=== PATIENT | male | born 1965 | race Hispanic/Latino ===

== ENCOUNTER 2021-03-11 18:14 | Emergency (ER) | payer OTHER ==
[2021-03-12] MEDS ORDERED: RAMI2.5C55 PO (09:47)
[2021-03-12] MEDS ORDERED: SIMV-43 PO (09:47)
[2021-03-12] MEDS ORDERED: MULT-1259 PO (09:47)
== END 2021-03-11 18:54 | disposition left against medical advice (07) ==
LOC: EDH 18:14
DX: S61.012A Laceration without foreign body of left thumb without damage to nail, initial encounter (principal); Z98.890 Other specified postprocedural states; Z53.21 Procedure and treatment not carried out due to patient leaving prior to being seen by health care provider; W26.8XXA Contact with other sharp object(s), not elsewhere classified, initial encounter; Y93.89 Activity, other specified; Y92.89 Other specified places as the place of occurrence of the external cause; Y99.8 Other external cause status

== ENCOUNTER 2021-03-11 20:45 | Observation (INO) | payer OTHER ==
[~2021-03-11] VITALS: Ht 165.1 cm; Wt 87.2 kg
[2021-03-11] MEDS ORDERED: SODIUM CHLORIDE 0.9% 50 ML IV ONE (21:31)
[2021-03-11 21:34] LABS: APPEARANCE,URINE Clear (CLEAR); BASOPHILS % (AUTO) 0.5 % (0.0-5.0); BILIRUBIN,URINE Negative (NEGATIVE); COLOR,URINE Yellow (YELLOW); EOSINOPHILS % (AUTO) 1.8 % (0.0-8.0); GLUCOSE, URINE (UA) >=1000 mg/dL (NEGATIVE); KETONES,URINE Negative (NEGATIVE); LEUKOCYTE ESTERASE ,URINE Negative (NEGATIVE); LYMPHOCYTES % (AUTO) 31.1 % (21.0-51.0); MEAN CORPUSCULAR HGB CONC 33.1 g/dL (32.0-36.0); MEAN CORPUSCULAR VOLUME 90.7 fL (79-99); MONOCYTES % (AUTO) 7.2 % (3.0-13.0); NEUTROPHILS % (AUTO) 59.2 % (40.0-77.0); NITRATE,URINE Negative (NEGATIVE); OCCULT BLOOD,URINE Trace (NEGATIVE); PLATELET COUNT (AUTO) 161 K/uL (130-400); PROTEIN,URINE Negative (NEGATIVE); RED BLOOD CELL COUNT(AUTO) 4.96 MIL/uL (4.50-6.20); RED CELL DISTRIBUTION WIDTH 13.6 % (11.0-15.5); WHITE BLOOD COUNT (AUTO) 8.9 K/uL (4.8-10.8)
[2021-03-11] MEDS ORDERED: CEFAZOLIN SODIUM 1 GM VIAL ONE (21:34)
[2021-03-11 21:41] LABS: BACTERIA,URINE Rare /HPF (None Seen); RBC,URINE 0-1 /HPF (0-1); SQUAMOUS EPITHELIAL CELL,UR Rare /HPF (0-2); WBC,URINE 0-1 /HPF (0-1)
[2021-03-11 21:42] LABS: MUCUS,URINE Rare LPF (None Seen)
[2021-03-11 21:48] LABS: CREATININE 1.3 mg/dL (0.5-1.5); POTASSIUM 4.2 mmol/L (3.5-5.1)
[2021-03-11 21:51] LABS: INR 1.03 (0.85-1.15); PROTHROMBIN TIME 11.2 SEC (9.6-11.6)
[2021-03-11 21:52] LABS: BILIRUBIN,TOTAL 0.5 mg/dL (0.2-1.0); PARTIAL THROMBOPLASTIN TIME 24.8 SEC (26.3-35.5); TOTAL PROTEIN, SERUM 8.3 g/dL (6.0-8.3)
[2021-03-11] MEDS ORDERED: VANCOMYCIN PROTOCOL PER PHARMACY IV PRN (22:15)
[2021-03-11] MEDS ORDERED: ACETAMINOPHEN-CODEINE 300/30MG TAB PO PRN ×2 (22:15)
[2021-03-11] MEDS ORDERED: SODIUM CHLORIDE 0.9% 1000ML 1,000 ML IV SCH ×2 (22:15)
[2021-03-11] MEDS ORDERED: ONDANSETRON HCL 4 MG/2 ML VIAL IV PRN (22:15)
[2021-03-11] MEDS ORDERED: NITROGLYCERIN 0.4 MG SL TAB SL PRN (22:15)
[2021-03-11] MEDS ORDERED: ACETAMINOPHEN 325 MG TAB PO PRN ×2 (22:15)
[2021-03-11 22:37] LABS: HEMOGLOBIN A1C 8.9 % (4.0-6.0)
[2021-03-11 22:39] LABS: AMPHET/METH SCREEN,URINE NEGATIVE (NEGATIVE); BARBITURATE SCREEN, URINE NEGATIVE (NEGATIVE); BENZODIAZEPINES SCREEN,URINE NEGATIVE (NEGATIVE); CANNABINOID SCREEN,URINE NEGATIVE (NEGATIVE); COCAINE SCREEN,URINE NEGATIVE (NEGATIVE); OPIATE SCREEN,URINE POSITIVE (NEGATIVE); PHENCYCLIDINE SCREEN,URINE NEGATIVE (NEGATIVE)
[2021-03-11] MEDS ORDERED: GLUCAGON 1MG KIT 1 MG ML IM PRN (23:45)
[2021-03-11] MEDS ORDERED: DEXTROSE 50%-WATER 50 ML DISP.SYRIN IV PRN (23:45)
[2021-03-11] MEDS ORDERED: SODIUM CHLORIDE 0.9% 1000ML 2,000 ML IV ONE (23:54)
[2021-03-12] VITALS (18 sets, daily range): BP systolic 114–143; BP diastolic 68–89
[2021-03-12] MEDS ORDERED: IPRATROPIUM/ALBUTEROL SULFATE 3 ML SOLUTION IH PRN (00:30)
[2021-03-12 05:57] LABS: BASOPHILS % (AUTO) 0.6 % (0.0-5.0); EOSINOPHILS % (AUTO) 2.7 % (0.0-8.0); LYMPHOCYTES % (AUTO) 32.7 % (21.0-51.0); MEAN CORPUSCULAR HGB CONC 32.7 g/dL (32.0-36.0); MEAN CORPUSCULAR VOLUME 91.9 fL (79-99); MONOCYTES % (AUTO) 9.4 % (3.0-13.0); NEUTROPHILS % (AUTO) 54.3 % (40.0-77.0); PLATELET COUNT (AUTO) 151 K/uL (130-400); RED BLOOD CELL COUNT(AUTO) 4.46 MIL/uL (4.50-6.20); RED CELL DISTRIBUTION WIDTH 13.6 % (11.0-15.5); WHITE BLOOD COUNT (AUTO) 7.1 K/uL (4.8-10.8)
[2021-03-12 06:16] LABS: ALBUMIN 3.3 g/dL (3.5-5.0); BILIRUBIN,TOTAL 0.4 mg/dL (0.2-1.0); POTASSIUM 4.1 mmol/L (3.5-5.1)
[2021-03-12] MEDS ORDERED: RAMI2.5C55 PO (09:47)
[2021-03-12] MEDS ORDERED: SIMV-43 PO (09:47)
[2021-03-12] MEDS ORDERED: MULT-1259 PO (09:47)
[2021-03-12] MEDS: INSULIN HUMULIN R 100 UNIT/ML 3ML SQ SCH ×2 (11:30→17:19)
[2021-03-12] MEDS ORDERED: CEFTRIAXONE SODIUM 1 GM IV SCH (11:37)
[2021-03-12] MEDS ORDERED: FAMOTIDINE 20MG TAB 20 MG TAB PO SCH (11:37)
[2021-03-12] MEDS ORDERED: LISINOPRIL 10 MG TABLET PO SCH (11:38)
[2021-03-12] MEDS ORDERED: VANCOMYCIN 1GM+NS 250ML 250 ML IV SCH ×2 (12:00→21:00)
[2021-03-12] MEDS ORDERED: FENTANYL CITRATE PF 50 MCG/1 ML 2ML VIAL ONE ×2 (12:22→13:02)
[2021-03-12] MEDS ORDERED: MIDAZOLAM HCL 1 MG/ML 2ML VIAL ONE (12:23)
[2021-03-12] MEDS ORDERED: CEFAZOLIN SODIUM 1 GM VIAL ONE (12:54)
[2021-03-12] MEDS ORDERED: LIDOCAINE HCL 1% 20 ML VIAL ONE (13:02)
[2021-03-12] MEDS ORDERED: BUPIVACAINE/PF 0.25% 30ML VIAL IJ ONE (13:02)
[2021-03-12] MEDS ORDERED: DEXAMETHASONE SOD PHOSPHATE 10MG/ML 1ML VIAL ONE (13:37)
[2021-03-12] MEDS ORDERED: ONDANSETRON HCL 4 MG/2 ML VIAL ONE (13:37)
[2021-03-12] MEDS ORDERED: SIMVASTATIN 20 MG TABLET PO SCH (21:00)
== END 2021-03-12 19:00 | disposition home or self-care (01) ==
LOC: EDH 20:45 → INTOOBSV 22:03 → EDHIP 22:03 → 3DH 03-12 02:02
PROVIDERS: ADMIT Internal Medicine; ATTEND Internal Medicine
DX: S67.02XA Crushing injury of left thumb, initial encounter (principal); S62.522A Displaced fracture of distal phalanx of left thumb, initial encounter for closed fracture; S61.112A Laceration without foreign body of left thumb with damage to nail, initial encounter; Z20.822 Contact with and (suspected) exposure to COVID-19; E11.9 Type 2 diabetes mellitus without complications; E78.5 Hyperlipidemia, unspecified; I10 Essential (primary) hypertension; J44.9 Chronic obstructive pulmonary disease, unspecified; W31.2XXA Contact with powered woodworking and forming machines, initial encounter; Y93.89 Activity, other specified; Y92.89 Other specified places as the place of occurrence of the external cause
CPT/HCPCS: 11750; 26756; 36415 ×2; 71045; 73140 ×2; 80053 ×2; 80305; 81001; 82948 ×4; 83036; 83735; 84484; 85025 ×2; 85610; 85730; 87426; 87641; 93005; 94664; 96365; 96366; 96372; 96375; 99285; A4215; A4216; A4223 ×2; A4565; A4657; A4930; A6223; A6445; C1713; G0168; G0378 ×20; J0690 ×2; J0696; J1100; J2250; J2405; J3010 ×2; J3370; J3490; J7030 ×2; U0003

== ENCOUNTER → 2022-12-30 | Outpatient (CLI) | payer OTHER ==
[~2022-12-30] MED LIST: MULT-1259 PO; RAMI2.5C55 PO; SIMV-43 PO
== END | disposition home or self-care (01) ==
LOC: SLP 20:30
PROVIDERS: ATTEND Student in an Organized Health Care Education/Training Program
DX: G47.33 Obstructive sleep apnea (adult) (pediatric) (principal)
CPT/HCPCS: 95811

== ENCOUNTER → 2023-01-09 | Outpatient (CLI) | payer OTHER | END | disposition home or self-care (01) | LOC: RAH 12:29 | PROVIDERS: ATTEND Orthopaedic Surgery | DX: M25.561 Pain in right knee (principal) | CPT/HCPCS: 93926 ==

== ENCOUNTER → 2023-01-13 | Outpatient (CLI) | payer OTHER | END | disposition home or self-care (01) | LOC: SHCH 09:47 | PROVIDERS: ATTEND Student in an Organized Health Care Education/Training Program | DX: R06.00 Dyspnea, unspecified (principal); I10 Essential (primary) hypertension; E78.5 Hyperlipidemia, unspecified | CPT/HCPCS: 93306 ==

== ENCOUNTER → 2023-01-20 | Outpatient (CLI) | payer OTHER ==
[2023-01-20 16:43] LABS: CREATININE 1.1 mg/dL (0.5-1.5); POTASSIUM 4.5 mmol/L (3.5-5.1)
== END | disposition home or self-care (01) ==
LOC: LAB 14:11
PROVIDERS: ATTEND Student in an Organized Health Care Education/Training Program
DX: I10 Essential (primary) hypertension (principal)
CPT/HCPCS: 36415; 80048

== ENCOUNTER → 2023-01-27 | Outpatient (CLI) | payer OTHER ==
[~2023-01-27] MED LIST changes: +IOHEXOL 350 MG/ML 100ML INFUS..BTL IV ONE
== END | disposition home or self-care (01) ==
LOC: RAH 10:27
PROVIDERS: ATTEND Student in an Organized Health Care Education/Training Program
DX: R07.9 Chest pain, unspecified (principal); M47.815 Spondylosis without myelopathy or radiculopathy, thoracolumbar region
CPT/HCPCS: 75574; Q9967

== ENCOUNTER → 2023-03-10 | Outpatient (CLI) | payer OTHER ==
[~2023-03-10] MED LIST changes: -IOHEXOL 350 MG/ML 100ML INFUS..BTL IV ONE
== END | disposition home or self-care (01) ==
LOC: RAH 12:39
PROVIDERS: ATTEND Orthopaedic Surgery
DX: M17.11 Unilateral primary osteoarthritis, right knee (principal); M85.861 Other specified disorders of bone density and structure, right lower leg; M25.461 Effusion, right knee
CPT/HCPCS: 73700

== ENCOUNTER 2023-05-20 06:58 | Observation (INO) | payer OTHER ==
[2023-05-15 09:37] LABS: BASOPHILS % (AUTO) 0.5 % (0.0-5.0); EOSINOPHILS % (AUTO) 1.6 % (0.0-8.0); HEMATOCRIT 45.3 % (42-54); LYMPHOCYTES % (AUTO) 34.9 % (21.0-51.0); MEAN CORPUSCULAR HEMOGLOBIN 30.6 pg (27.0-33.0); MEAN CORPUSCULAR HGB CONC 33.1 g/dL (32.0-36.0); MEAN CORPUSCULAR VOLUME 92.4 fL (79-99); MONOCYTES % (AUTO) 6.7 % (3.0-13.0); NEUTROPHILS % (AUTO) 56.1 % (40.0-77.0); PLATELET COUNT (AUTO) 164 K/uL (130-400); RED CELL DISTRIBUTION WIDTH 12.7 % (11.0-15.5); WHITE BLOOD COUNT (AUTO) 5.6 K/uL (4.8-10.8)
[2023-05-15 09:48] LABS: INR 0.96 (0.85-1.15); PROTHROMBIN TIME 10.5 SEC (9.6-11.6)
[2023-05-15 09:50] LABS: PARTIAL THROMBOPLASTIN TIME 28.9 SEC (26.3-35.5)
[2023-05-15 09:51] VITALS: BP 137/84
[2023-05-15 09:51] LABS: CREATININE 0.9 mg/dL (0.5-1.5); POTASSIUM 4.2 mmol/L (3.5-5.1)
[2023-05-20] VITALS (26 sets, daily range): BP systolic 125–149; BP diastolic 63–95
[~2023-05-20] VITALS: Ht 165.1 cm; Wt 79.7 kg
[~2023-05-20 06:58] MED LIST changes: +APIX5TAB PO; -MULT-1259 PO; -RAMI2.5C55 PO; -SIMV-43 PO
[2023-05-20] MEDS ORDERED: LACTATED RINGERS 1000ML 1,000 ML IV ONE (07:32)
[2023-05-20] MEDS ORDERED: CEFAZOLIN SODIUM 2 GM VIAL ONE (07:32)
[2023-05-20] MEDS ORDERED: FAMOTIDINE 20MG VIAL IV ONE (09:20)
[2023-05-20] MEDS ORDERED: SUGAMMADEX SODIUM 200 MG/2 ML VIAL IV ONE (09:20)
[2023-05-20] MEDS ORDERED: HYDROMORPHONE 1 MG INJ ONE ×2 (09:20→13:09)
[2023-05-20] MEDS ORDERED: ROPIVACAINE 0.5% 5MG/ML 30ML IJ ONE (09:28)
[2023-05-20] MEDS ORDERED: LIDOCAINE PF 100MG/5ML (2%) SYRINGE 5ML ONE (09:41)
[2023-05-20] MEDS ORDERED: FENTANYL CITRATE PF 50 MCG/1 ML 5ML AMP IV ONE (09:42)
[2023-05-20] MEDS ORDERED: PROPOFOL 10 MG/ML 20ML VIAL IV ONE (09:42)
[2023-05-20] MEDS ORDERED: ROCURONIUM 10MG/1ML SYR 10 MG/ML ML ONE ×2 (09:42→11:15)
[2023-05-20] MEDS ORDERED: GLYCOPYRROLATE 1 MG/5 ML SYRINGE ONE (09:42)
[2023-05-20] MEDS ORDERED: TRANEXAMIC ACID 1000MG/10ML ONE (09:53)
[2023-05-20] MEDS ORDERED: MIDAZOLAM HCL 1 MG/ML 2ML VIAL ONE (10:08)
[2023-05-20] MEDS ORDERED: HYDROCODONE/ACETAMINOPHEN 5/325 MG TAB PO PRN (10:30)
[2023-05-20] MEDS ORDERED: POTASSIUM CHLORIDE 20MEQ/100ML 100 ML IV PRN (10:30)
[2023-05-20] MEDS ORDERED: KCL 20 MEQ ERTAB PO PRN (10:30)
[2023-05-20] MEDS ORDERED: POTASSIUM CHLORIDE 10% ELIXIR 20 MEQ/15 ML UDCUP PO PRN (10:30)
[2023-05-20] MEDS ORDERED: ONDANSETRON 4MG INJ IVP PRN (10:30)
[2023-05-20] MEDS ORDERED: MORPHINE 4 MG SYG IVP PRN (10:30)
[2023-05-20] MEDS ORDERED: CEFAZOLIN SODIUM 2 GM VIAL IVPB ONE (10:50)
[2023-05-20] MEDS ORDERED: ONDANSETRON 4MG INJ ONE (11:19)
[2023-05-20] MEDS ORDERED: TRANEXAMIC ACID 1000MG/10ML TP ONE (11:45)
[2023-05-20] MEDS: TRAMADOL HCL 50 MG TABLET PO SCH ×3 (12:00→23:02)
[2023-05-20] MEDS: ACETAMINOPHEN 1,000 MG/100 ML VIAL IV SCH ×3 (13:00→23:02)
[2023-05-20] MEDS: 0.9%NACL 1000ML 1,000 ML IV SCH ×2 (14:22→19:32)
[2023-05-20] MEDS: IBUPROFEN 800MG + NS 250ML IV SCH ×2 (14:37→19:32)
[2023-05-20] MEDS: CEFAZOLIN SODIUM 1 GM VIAL IVPB SCH ×2 (16:45→23:03)
[2023-05-20] MEDS: FAMOTIDINE 20MG TAB PO SCH (19:32)
[2023-05-20] MEDS: HYDROCODONE/ACETAMINOPHEN 10/325 MG TAB PO PRN (19:35)
[2023-05-21] VITALS: BP 119/74
[2023-05-21 03:22] VITALS: BP 122/75
[2023-05-21] MEDS: TRAMADOL HCL 50 MG TABLET PO SCH ×2 (04:41→12:03)
[2023-05-21] MEDS: IBUPROFEN 800MG + NS 250ML IV SCH (04:41)
[2023-05-21 05:15] LABS: HEMATOCRIT 38.4 % (42-54); MEAN CORPUSCULAR HEMOGLOBIN 30.9 pg (27.0-33.0); MEAN CORPUSCULAR HGB CONC 32.8 g/dL (32.0-36.0); MEAN CORPUSCULAR VOLUME 94.1 fL (79-99); RED BLOOD CELL COUNT(AUTO) 4.08 MIL/uL (4.50-6.20); RED CELL DISTRIBUTION WIDTH 12.9 % (11.0-15.5); WHITE BLOOD COUNT (AUTO) 8.6 K/uL (4.8-10.8)
[2023-05-21 05:21] LABS: CREATININE 0.8 mg/dL (0.5-1.5)
[2023-05-21] MEDS: 0.9%NACL 1000ML 1,000 ML IV SCH (05:59)
[2023-05-21] MEDS: APIXABAN 2.5 MG TABLET PO SCH ×2 (05:59→08:43)
[2023-05-21] MEDS: FAMOTIDINE 20MG TAB PO SCH (08:42)
[2023-05-21] MEDS ORDERED: POLYETHYLENE GLYCOL 3350 17 GM POWD.PACK PO SCH (09:00)
[2023-05-21 09:25] VITALS: BP 139/82
[2023-05-21 11:30] VITALS: BP 131/70
[2023-05-21] MEDS: HYDROCODONE/ACETAMINOPHEN 10/325 MG TAB PO PRN (13:28)
[2023-05-23] MEDS ORDERED: BISACODYL 10 MG SUPP.RECT RC PRN (10:30)
== END 2023-05-21 18:05 | disposition home or self-care (01) ==
LOC: DAH 06:58 → DAHIP 06:59 → 4DH 14:15
PROVIDERS: ADMIT Orthopaedic Surgery; ATTEND Orthopaedic Surgery
DX: M17.11 Unilateral primary osteoarthritis, right knee (principal); Z20.822 Contact with and (suspected) exposure to COVID-19; I48.91 Unspecified atrial fibrillation; Z79.01 Long term (current) use of anticoagulants; Z79.899 Other long term (current) drug therapy; Z98.890 Other specified postprocedural states
CPT/HCPCS: 80048 ×2; 85025; 85610; 85730; 87426; 36415 ×2; 87641; 27447; 96365; 96366 ×2; 96367; 96368; 64447; 82948 ×5; 93005; 85027; 97161; 97039 ×2; 97116 ×2; 97530; G0378 ×27; A4663; J7030; J7120 ×2; J3490 ×3; J3010; J0690 ×4; J1170; J2001; J2250; J2704; J2405; J2795; J1741 ×3; A6223; G0168; A4649 ×3; A6212; A4930; C1776 ×3; A5120; A4215; A4223; A4222; A4221

== ENCOUNTER → 2024-09-14 | Outpatient (CLI) | payer OTHER ==
[~2024-09-14] MED LIST changes: +GADOTERATE MEGLUMINE 10 MMOL/20 ML VIAL IV ONE
== END | disposition home or self-care (01) ==
LOC: RAH 14:13
PROVIDERS: ATTEND Family Medicine
DX: M47.812 Spondylosis without myelopathy or radiculopathy, cervical region (principal); M50.221 Other cervical disc displacement at C4-C5 level; M48.02 Spinal stenosis, cervical region
CPT/HCPCS: 72156; A9575

== ENCOUNTER → 2025-05-01 | Outpatient (CLI) | payer OTHER ==
[~2025-05-01] MED LIST changes: -GADOTERATE MEGLUMINE 10 MMOL/20 ML VIAL IV ONE
== END | disposition home or self-care (01) ==
LOC: RAH 07:46
PROVIDERS: ATTEND Family Medicine
DX: M54.50 Low back pain, unspecified (principal)

== ENCOUNTER → 2025-08-29 | Outpatient (CLI) | payer OTHER, MEDICARE ==
--- NOTE | 2025-08-29 19:19 | HMCIMG ---
EXAM: MR RIGHT SHOULDER WITHOUT CONTRAST CLINICAL HISTORY: 60 year old male with pain in unspecified shoulder TECHNIQUE: Multiplanar multisequence magnetic resonance images were obtained WITHOUT contrast. CONTRAST: NONE COMPARISON: None FINDINGS: JOINTS: Moderate AC joint degenerative changes with capsular hypertrophy and encroachment on the supraspinatus. BONE: Subchondral cyst of the greater tuberosity. Metallic artifact reflecting postsurgical changes of the greater tuberosity seen. SOFT TISSUES: Moderate tendinopathy of the supraspinatus, infraspinatus, and subscapularis. Mild bicipital tendinitis with fluid around the biceps tendon. IMPRESSION: 1. Moderate tendinopathy of the supraspinatus, infraspinatus, and subscapularis. 2. Mild bicipital tendinitis with fluid around the biceps tendon. 3. Moderate AC joint degenerative changes with capsular hypertrophy and encroachment on the supraspinatus. 4. Subchondral cyst of the greater tuberosity with metallic artifact reflecting postsurgical changes. /[place]
--- NOTE | 2025-08-30 16:05 | HMCIMG ---
EXAMINATION: NONCONTRAST MRI OF THE LEFT SHOULDER. CLINICAL HISTORY: Pain. COMPARISON: None provided. TECHNIQUE: Multiplanar, multisequence MR images of the left shoulder are submitted. FINDINGS: There is type I acromion with no subacromial spur. The coracoclavicular ligament is intact. There is moderate acromioclavicular joint osteoarthritis. No periosseous synovial thickening. There is mild subacromial-subdeltoid bursitis. The peritendinous soft tissues are normal. There are post-operative anchors in the greater tuberosity at the supraspinatus and anterior infraspinatus enthesis with no discrete tendon extending up to the anchor. The tendon is retracted at the level of glenohumeral joint. Attenuated residual indraspinatus tendon. Teres minor and subscapularis tendons are intact. Moderate to advanced supraspinatus and infraspinatus muscle volume loss. The long head of the biceps tendon is normal in course and morphology. Bicipital anchor is intact. There is superior migration of the humeral head with abutment against the undersurface of the acromion. The labrum is normal in bulk in signal. The glenohumeral joint is intact. There is mild joint effusion extending into the subscapularis recess. The soft tissues are normal. IMPRESSION: 1. Moderate to advanced supraspinatus and infraspinatus muscle volume loss with retracted tendons, consistent with chronic rotator cuff tear. Anchors in the greater tuberosity. 2. Superior migration of the humeral head with abutment against the undersurface of the acromion. 3. Moderate acromioclavicular joint osteoarthritis. /[place]
== END | disposition home or self-care (01) ==
LOC: RAH 13:54
PROVIDERS: ATTEND Student in an Organized Health Care Education/Training Program
DX: M19.012 Primary osteoarthritis, left shoulder (principal); M19.011 Primary osteoarthritis, right shoulder; M75.52 Bursitis of left shoulder; M25.412 Effusion, left shoulder; M67.911 Unspecified disorder of synovium and tendon, right shoulder; M75.21 Bicipital tendinitis, right shoulder; M25.519 Pain in unspecified shoulder
CPT/HCPCS: 73221

== ENCOUNTER 2025-10-02 06:49 | Observation (INO) | payer OTHER, MEDICARE ==
[2025-09-28 10:21] VITALS: BP 129/82; PULSE 63; RESP 13; TEMP 98.8
[2025-09-28 10:24] LABS: IMMATURE GRANULOCYTE ABSOLUTE 0.04 K/uL (0-1); NUCLEATED RED BLOOD CELLS 0.0 % (0.0-0.19); PLATELET COUNT (AUTO) 184 K/uL (130-400); RED BLOOD CELL COUNT(AUTO) 4.98 MIL/uL (4.50-6.20); RED CELL DISTRIBUTION WIDTH 12.5 % (11.0-15.5); WHITE BLOOD COUNT (AUTO) 6.5 K/uL (4.8-10.8)
[2025-09-28 10:36] LABS: INR 0.97 (0.85-1.15)
--- NOTE | 2025-09-28 10:40 | NUR ---
RE: IS INITIAL IS INITIAL TEACHING DONE DURING PREOP BY RT UNIQUE.
--- NOTE | 2025-09-28 11:26 | EKG ---
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
--- NOTE | 2025-09-29 09:30 | NUR ---
RE:EKG REPORTED EKG RESULTS TO DR SINGLETON ALONG WITH OLD EKG TO COMPARE. NO NEW ORDERS RECEIVED, OK TO PROCEED.
[~2025-10-02] VITALS: Ht 165.1 cm; Wt 82.6 kg
[2025-10-02] VITALS (26 sets, daily range): BP systolic 113–147; BP diastolic 60–91; PULSE 65–91; RESP 16–19; TEMP 96.9–98; O2SAT 93–95
[~2025-10-02 06:49] MED LIST changes: -APIX5TAB PO; +ATOR10 PO; +CELE200 PO; +MAGN250T35 PO; +MULT-1335 PO; +OMEP40CA21 PO; +TAMS-55 PO
[2025-10-02] MEDS ORDERED: LACTATED RINGERS 1000ML 1,000 ML IV ONE (07:10)
[2025-10-02] MEDS ORDERED: PROMETHAZINE HCL 25 MG/ML 1ML AMPULE IM PRN (08:00)
[2025-10-02] MEDS ORDERED: SUGAMMADEX SODIUM 200 MG/2 ML VIAL IV ONE (08:02)
[2025-10-02] MEDS ORDERED: LIDOCAINE HCL MPF 1% 5ML VIAL ONE (08:06)
[2025-10-02] MEDS ORDERED: LIDOCAINE PF 100MG/5ML (2%) SYRINGE 5ML ONE (08:06)
[2025-10-02] MEDS ORDERED: MIDAZOLAM HCL 1 MG/ML 2ML VIAL ONE (08:06)
[2025-10-02] MEDS ORDERED: SUCCINYLCHOLINE CHLORIDE 20 MG/ML 10 ML VIAL ONE (08:06)
[2025-10-02] MEDS ORDERED: GLYCOPYRROLATE 0.2 MG/ML 5 ML VIAL ONE (08:16)
[2025-10-02] MEDS: TRANEXAMIC ACID 1000MG/10ML IV ONE (09:51)
[2025-10-02] MEDS ORDERED: TRANEXAMIC ACID 1000MG/10ML ONE ×2 (10:25→10:26)
[2025-10-02] MEDS ORDERED: CYCLOBENZAPRINE HCL 10 MG TABLET PO PRN (13:00)
[2025-10-02] MEDS ORDERED: PoTASSium chl 10% ELIXIR 20MEQ 20 MEQ/15 ML UDCUP PO PRN (13:00)
[2025-10-02] MEDS ORDERED: HYDROcodone/APAP 5/325 1 TAB TABLET PO PRN (13:00)
[2025-10-02] MEDS ORDERED: FE FUMARATE/FA/MV, MIN COMB#15 1 TAB PO PRN (13:00)
[2025-10-02] MEDS ORDERED: PoTASSium chloRIDE 20MEQ ER 20 MEQ ERTAB PO PRN (13:00)
[2025-10-02] MEDS ORDERED: CALCIUM CARB 500MG PO PRN (13:00)
--- NOTE | 2025-10-02 13:47 | NUR ---
Patient admitted to unit at this time. Alert and oriented. s/p reverse left shoulder orthoplasty by Dr. Corona. at bedside. Head to toe assessment was done. Resident skin condition intact. Incision cover dry and clean. Sling in place. As per report, block was done to left upper extremity, currently resident unable to feel or move fingers yet. Pulse present, skin color normal, capillary reflect present. Lung sounds clear, bowel sounds present, last bm 10/02/25, Resident denies pain or discomfort. No wounds noted on lower extremities, no edema, pedal pulses present. Vitals signs within normal limits at this time. Currently on O2 at 2 liter for comfort. Bed in lowest position, call light at reach.
[2025-10-02] MEDS: 0.9%NACL 1000ML 1,000 ML IV SCH (13:58)
--- NOTE | 2025-10-02 13:58 | OP ---
Operative Note: DATE OF PROCEDURE: 10/02/25 SURGEON: MCKENZIE HAIRSTON MD STONE LAYER: SIMA Amaya ANESTHESIA: General and interscalene block ANESTHESIOLOGIST/INTERIOR PLANT CARETAKER: VIJAY Lee PREOPERATIVE DIAGNOSIS: Left shoulder cuff tear arthropathy POSTOPERATIVE DIAGNOSIS: Left shoulder cuff tear arthropathy PROCEDURE: Left reverse total shoulder arthroplasty ESTIMATED BLOOD LOSS: 200 cc COMPLICATIONS: None DRAINS: None SPECIMENS: resected bone from the humeral head not sent to pathology IMPLANTS: [employer] size 10 x 32 FX V135 humeral stem, 3+ 32 stability cup, 32 centered glenosphere, standard 24 mm base plate with one compression and three locking screws INDICATIONS: 60-year-old male with left shoulder pain and dysfunction secondary to rotator cuff arthropathy. The patient was failing conservative management and was found on MRI to have a large retracted rotator cuff tear with atrophy of the muscles. After discussion the risk, benefits, and alternatives, the patient voluntarily agreed to undergo the aforementioned procedure. DESCRIPTION OF PROCEDURE: Patient was properly identified in the preoperative holding area. Surgical site marking was verified and surgery consent reviewed. The patient was then taken to the operating room and placed in supine position on the OR table. After induction of general anesthesia, preoperative antibiotics were given, all bony prominences were well-padded as the patient was transitioned into beachchair positioning. The left upper extremity was then prepped and draped in usual sterile fashion. Surgical time out was done verifying correct surgery, side, site, and location to be performed. We then began the procedure by making approximately 12 cm long incision over the deltopectoral interval using a 10 blade. Hemostasis was performed using Bovie electrocautery. We then dissected through the subcutaneous tissues using the Metzenbaums to identify our deltopectoral interval. We then mobilized the cephalic vein laterally as we opened the interval. We then incised the clavipectoral fascia just lateral to the conjoined tendon and placed our retractor deep to this. We identified the long head of the biceps tendon and performed a tenotomy. We then began elevating the subscapularis off of its insertion on the humeral head using Bovie electrocautery. With external rotation we brought the humeral head into view and released the capsule at the inferior aspect of the head. We released a small portion of the pectoralis off of its insertion on the humerus to allow for better exposure. We then placed our retractors protecting soft tissue. At this point we began using the sounding instruments, hand reaming up to a size 10. We pinned the cutting guide off of the handle in 30 degrees of version and performed the humeral osteotomy. We then broached up to a size 10 x 32. The saw was used to clean up our cut. We placed a protective cap on the cut surface of the humerus and subluxated the humerus posteriorly. We then placed our retractors around the glenoid to provide adequate exposure of the glenoid. The labrum and long head biceps tendon were resected with Bovie e lectrocautery. We then used to the guide to insert our central guidepin ensuring we were far enough inferior on the glenoid face. Over the central guidepin we reamed with the all-in-one reamer for the central peg and the faceplate. We then used the hand carver to clean up the remaining soft tissue and bone. We then thoroughly irrigated out the glenoid bone and impacted into position the glenoid baseplate. We then placed 1 compression screw and 3 locking screw in the baseplate. We noted using a freer elevator that the baseplate was appropriately seated. We elected to use a centered glenosphere. Glenosphere was then seated in standard fashion with the setscrew tightened. We then removed our retractors and dislocated the humerus once more. We then elected to trial with a size +3 polyethylene. With this in place, we reduced the humerus and noted good stable range of motion. We then dislocated the humerus and remove the trial components. We thoroughly irrigated out the bone. We seated the final stem implant and trialed once more. The size +3 polyethylene was still appropriate so we opened the final polyethylene and impla nted this in standard fashion. We then reduced the humerus once more and ensured appropriate range of motion and stability. We checked the position of the components under fluoroscopy and found him to be appropriate. We thoroughly irrigated out the wound. We then began loosely repairing the deltopectoral interval using #2 Ethibond. Subcutaneous tissue was approximated using 2-0 Vicryl. The skin was closed using a running subcuticular 3-0 Monocryl with Dermabond applied. An Optifoam dressing was applied once the Dermabond dried. The patient was then placed into a sling, awakened from anesthesia, and taken recovery room in stable condition. MCKENZIE HAIRSTON MD Oct 02, 2025 13:58
--- NOTE | 2025-10-02 14:12 | HMCIMG ---
EXAM: CR Left Shoulder, 1 View. CLINICAL HISTORY: S/P SHOULDER SURGERY COMPARISON: None provided. FINDINGS: Reverse [id number] left total shoulder arthroplasty in near anatomic alignment with no periprosthetic fracture appreciated. Appropriate postsurgical changes within the surrounding soft tissues. There is no acute abnormality within the visualized chest. IMPRESSION: No acute abnormality evident on examination of the right shoulder. No acute fracture or dislocation. /[place]
--- NOTE | 2025-10-02 16:07 | NUR ---
D/C PLAN CM spoke to patient regarding d/c planning. Patient lives with spouse. Reports he is independent with ADLs and denies having any home services. Reports he has can only and denies having any other DME. States spouse will be assisting in care at home. Patient states discharge options were not discussed but is agreeable to home health for PT if ordered. CM obtained [facility] for any in network home health agency and verified address: [address] [place] [address] [address] [place] [address]. CM to f/u with regarding further d/c planning orders. Plan for now is to return to previous home setting with possibly home health.
--- NOTE | 2025-10-02 20:30 | NUR ---
ROUNDING: PT LYING SEMI-CATHERINE'S POSITION, AT BEDSIDE. PT POST OP DAY 1, REVERSE LEFT SHOULDER ARTHROPLASTY, ARM SLING IN PLACE, DRESSING TO LEFT SHOULDER DRY/INTACT. PT VOICES LEFT ARM WITH NUMBNESS AND HEAVINESS, SKIN WARM TO TOUCH, CAPILLARY REFILL < 2 SECONDS. IV INFUSING NS AT 100 ML/HR TO RIGHT HAND, NO REDNESS, NO SWELLING, NO TENDERNESS NOTED. BILATERAL SCDs IN PLACE. ENCOURAGED TO USE CALL LIGHT FOR ASSISTANCE, S/R UP X 2, CALL PRATT WITHIN REACH.
[2025-10-02] MEDS: (Magnesium 250 MG) PO SCH (21:00)
--- NOTE | 2025-10-02 21:00 | NUR ---
EDUCATION: PT/ INSTRUCTED ON IMPORTANCE OF USING INCENTIVE SPIROMETER EVERY 1 HOUR WHILE AWAKE TO HELP PREVENT POST OP PNEUMONIA. PT/ VERBALIZES UNDERSTANDING AND DID RETURN DEMONSTRATION ON IS UP TO 2000 X 10. PT ALSO INSTRUCTED ON ICE PACKS TO LEFT SHOULDER EVERY 6 HOURS TO LEAVE ON FOR 20 MINUTES. PT/ VERBALIZE UNDERSTANDING. CALL PRATT WITHIN REACH.
[2025-10-03 04:02] LABS: NUCLEATED RED BLOOD CELLS 0.0 % (0.0-0.19); PLATELET COUNT (AUTO) 165.0 K/uL (130-400); RED BLOOD CELL COUNT(AUTO) 4.12 MIL/uL (4.50-6.20); RED CELL DISTRIBUTION WIDTH 12.9 % (11.0-15.5); WHITE BLOOD COUNT (AUTO) 13.9 K/uL (4.8-10.8)
[2025-10-03 04:09] LABS: CREATININE 0.9 mg/dL (0.5-1.3); GLOMERULAR FILTR. RATE CALC 97.0 mL/min (>90); GLUCOSE,RANDOM 147.0 mg/dL (70-105); SODIUM SERUM 134.0 mmol/L (136-145); UREA NITROGEN, BLOOD 27.0 mg/dL (7-18)
[2025-10-03 04:57] VITALS: BP 115/61; PULSE 76; RESP 18; TEMP 97.8
[2025-10-03 07:48] VITALS: BP 127/79; PULSE 80; RESP 18; TEMP 97.8
--- NOTE | 2025-10-03 08:05 | PN ---
Ortho postop day one. This morning the patient is awake alert and oriented. is at the bedside. Reporting no acute distress. Pain is managed. States he is now able to feel most of the his extremity. Able to make the okay sign and has normal range of motion of the wrist can make a composite fist on command. Distal neurovascular exam is intact. Dressing is intact. Arm sling in place. Vital signs have remained stable. Afebrile. Laboratory results reviewed. Noted to have a drop in hemoglobin and hematocrit as expected after reverse shoulder arthroplasty. Patient is currently asymptomatic. We will continue to observe and address per protocol as necessary. Operative findings discussed with the patient. Ice present to operative site. The patient eager to go home today. The I have asked the patient to try to spend some time out of bed can ambulate and pending physical therapy this morning. Assessment: Status post left reverse total shoulder arthroplasty. Asymptomatic acute postoperative blood loss anemia. Plan: Continue with Dr. Corona reverse shoulder arthroplasty protocol and discharge planning. Asymptomatic acute postoperative blood loss anemia addressed with the protocol as necessary Vitals/Labs Vital Signs Date Time Temp Pulse Resp B/P (MAP) Pulse Ox O2 Delivery O2 Flow Rate FiO2 10/03/25 07:48 97.9 80 18 127/79 91 Room Air 10/03/25 04:57 21 10/02/25 20:00 0 Laboratory Tests 10/03/25 03:50 Medications Current Medications Cefazolin Sodium 2 gm STK-MED ONCE .ROUTE Last administered on 10/02/25at 18:37; Start 10/02/25 at 07:10; Stop 10/02/25 at 07:10; Status DC Lactated Ringer's 1,000 ml @ As Directed STK-MED ONCE IV; Start 10/02/25 at 07:10; Stop 10/02/25 at 07:10; Status DC Ondansetron HCl 4 mg AD PRN IVP; Start 10/02/25 at 08:00; Stop 10/02/25 at 14:05; Status DC Metoclopramide HCl 10 mg AD PRN IVP; Start 10/02/25 at 08:00; Stop 10/02/25 at 14:05; Status DC Promethazine HCl 25 mg AD PRN IM; Start 10/02/25 at 08:00; Stop 10/02/25 at 14:05; Status DC Ketorolac Tromethamine 30 mg AD PRN IV; Start 10/02/25 at 08:00; Stop 10/02/25 at 14:05; Status DC Morphine Sulfate 2 mg AD PRN IVP Last administered on 10/02/25at 13:10; Start 10/02/25 at 08:00; Stop 10/02/25 at 14:05; Status DC Fentanyl Citrate 25 mcg Q5MIN PRN IVP; Start 10/02/25 at 08:00; Stop 10/02/25 at 14:05; Status DC Naloxone HCl 0.1 mg AD PRN IVP; Start 10/02/25 at 08:00; Stop 10/02/25 at 14:05; Status DC Acetaminophen 100 ml @ As Directed STK-MED ONCE .ROUTE; Start 10/02/25 at 08:02; Stop 10/02/25 at 08:02; Status DC Lidocaine HCl 5 ml STK-MED ONCE .ROUTE; Start 10/02/25 at 08:06; Stop 10/02/25 at 08:06; Status DC Lidocaine HCl 100 mg STK-MED ONCE .ROUTE; Start 10/02/25 at 08:06; Stop 10/02/25 at 08:06; Status DC Phenylephrine HCl 10 mg STK-MED ONCE IV; Start 10/02/25 at 08:06; Stop 10/02/25 at 08:06; Status DC Ondansetron HCl 4 mg STK-MED ONCE .ROUTE; Start 10/02/25 at 08:06; Stop 10/02/25 at 08:06; Status DC Ropivacaine 150 mg STK-MED ONCE .ROUTE; Start 10/02/25 at 08:06; Stop 10/02/25 at 08:06; Status DC Succinylcholine Chloride 200 mg STK-MED ONCE .ROUTE; Start 10/02/25 at 08:06; Stop 10/02/25 at 08:06; Status DC Dexamethasone Sodium Phosphate 10 mg STK-MED ONCE .ROUTE; Start 10/02/25 at 08:06; Stop 10/02/25 at 08:06; Status DC Midazolam HCl 2 mg STK-MED ONCE .ROUTE; Start 10/02/25 at 08:06; Stop 10/02/25 at 08:06; Status DC Propofol 200 mg STK-MED ONCE IV; Start 10/02/25 at 08:07; Stop 10/02/25 at 08:07; Status DC Ketamine HCl 50 mg STK-MED ONCE .ROUTE; Start 10/02/25 at 08:07; Stop 10/02/25 at 08:07; Status DC Rocuronium [place] 50 mg STK-MED ONCE .ROUTE; Start 10/02/25 at 08:07; Stop 10/02/25 at 08:07; Status DC Fentanyl Citrate 100 mcg STK-MED ONCE .ROUTE; Start 10/02/25 at 08:07; Stop 10/02/25 at 08:07; Status DC Phenylephrine HCl 10 mg STK-MED ONCE IV; Start 10/02/25 at 08:16; Stop 10/02/25 at 08:16; Status DC Glycopyrrolate 1 mg STK-MED ONCE .ROUTE; Start 10/02/25 at 08:16; Stop 10/02/25 at 08:16; Status DC Ephedrine Sulfate 50 mg STK-MED ONCE .ROUTE; Start 10/02/25 at 08:16; Stop 10/02/25 at 08:16; Status DC Tranexamic Acid 1,000 mg STK-MED ONCE .ROUTE; Start 10/02/25 at 10:25; Stop 10/02/25 at 10:26; Status DC Tranexamic Acid 1,000 mg STK-MED ONCE .ROUTE; Start 10/02/25 at 10:26; Stop 10/02/25 at 10:26; Status DC Cefazolin Sodium 2 gm STK-MED ONCE IVPB Last administered on 10/02/25at 09:36; Start 10/02/25 at 09:36; Stop 10/02/25 at 10:35; Status DC Tranexamic Acid 1,000 mg STK-MED ONCE IV Last administered on 10/02/25at 09:51; Start 10/02/25 at 09:51; Stop 10/02/25 at 10:35; Status DC Rocuronium [place] 50 mg STK-MED ONCE .ROUTE; Start 10/02/25 at 11:38; Stop 10/02/25 at 11:38; Status DC Sodium Chloride 1,000 ml @ 100 mls/hr Q10H IV Last administered on 10/03/25at 01:19; Start 10/02/25 at 13:00; Stop 10/03/25 at 12:59 Polyethylene Glycol 17 gm DAILY PO; Start 10/03/25 at 09:00; Stop 11/02/25 at 08:59 Bisacodyl 10 mg DAILY PRN RC; Start 10/05/25 at 13:00; Stop 11/04/25 at 12:59 Aspirin 325 mg BID PO; Start 10/03/25 at 09:00; Stop 11/02/25 at 08:59 Ketorolac Tromethamine 15 mg Q6H PRN IV; Start 10/03/25 at 13:00; Stop 10/08/25 at 12:59 Multivitamins/Iron 1 tab DAILY PRN PO; Start 10/02/25 at 13:00; Stop 11/01/25 at 12:59 Ondansetron HCl 4 mg Q6H PRN IVP Last administered on 10/02/25at 15:30; Start 10/02/25 at 13:00; Stop 11/01/25 at 12:59 Calcium Carbonate 500 mg Q12H PRN PO; Start 10/02/25 at 13:00; Stop 11/01/25 at 12:59 Cefazolin Sodium 2 gm Q8H IVP Last administered on 10/03/25at 01:19; Start 10/02/25 at 18:00; Stop 10/03/25 at 02:01; Status DC Gabapentin 100 mg TID PO Last administered on 10/02/25at 21:29; Start 10/02/25 at 14:00; Stop 11/01/25 at 13:59 Cyclobenzaprine HCl 5 mg Q8H PRN PO; Start 10/02/25 at 13:00; Stop 11/01/25 at 12:59 Docusate Sodium 100 mg BID PO Last administered on 10/02/25at 21:30; Start 10/02/25 at 21:00; Stop 11/01/25 at 20:59 Ketorolac Tromethamine 15 mg Q8H IV Last administered on 10/03/25at 05:38; Start 10/02/25 at 13:00; Stop 10/03/25 at 05:01; Status DC Potassium Chloride 100 ml @ 100 mls/hr AD PRN IV; Start 10/02/25 at 13:00; Stop 11/01/25 at 12:59 Potassium Chloride 20 meq AD PRN PO; Start 10/02/25 at 13:00; Stop 11/01/25 at 12:59 Potassium Chloride 20 meq AD PRN PO; Start 10/02/25 at 13:00; Stop 11/01/25 at 12:59 Tramadol HCl 50 mg Q6H PRN PO; Start 10/02/25 at 13:00; Stop 10/07/25 at 12:59 Acetaminophen/ Hydrocodone Bitart Q4H PRN PO; Start 10/02/25 at 13:00; Stop 10/07/25 at 12:59 Atorvastatin Calcium 10 mg HS PO Last administered on 10/02/25at 21:30; Start 10/02/25 at 21:00; Stop 11/01/25 at 20:59 Tamsulosin HCl 0.4 mg DAILY PO; Start 10/03/25 at 09:00; Stop 11/02/25 at 08:59 Home Med (Magnesium 250 MG) HS PO; Start 10/02/25 at 21:00; Stop 11/01/25 at 20:59 Home Med (Multivit-Min/ Folic/Vit K/Ly... DAILY PO; Start 10/03/25 at 09:00; Stop 11/02/25 at 08:59 Pantoprazole Sodium 40 mg DAILY PO; Start 10/03/25 at 09:00; Stop 11/02/25 at 08:59 Morphine Sulfate 2 mg STK-MED ONCE .ROUTE; Start 10/02/25 at 13:10; Stop 10/02/25 at 13:10; Status DC Ketorolac Tromethamine 15 mg STK-MED ONCE .ROUTE; Start 10/02/25 at 13:38; Stop 10/02/25 at 13:38; Status DC [facility] Oct 03, 2025 08:05
[2025-10-03] MEDS ORDERED: LYCOP PO SCH (09:00)
[2025-10-03] MEDS ORDERED: VIT K PO SCH (09:00)
[2025-10-03] MEDS ORDERED: FOLIC PO SCH (09:00)
[2025-10-03] MEDS ORDERED: MULTIVIT MIN PO SCH (09:00)
[2025-10-03] MEDS: ASPIRIN 325MG TAB PO SCH (09:06)
[2025-10-03 10:18] VITALS: O2SAT 92
[2025-10-03] MEDS ORDERED: HYDR-4060 PO (10:41)
[2025-10-03] MEDS ORDERED: CYCL-309 PO (10:41)
[2025-10-03] MEDS ORDERED: DOCU-116 PO (10:41)
[2025-10-03 11:36] VITALS: BP 121/67; PULSE 71; RESP 19; TEMP 97.9
--- NOTE | 2025-10-03 11:40 | NUR ---
DISCUSSED D/C PLAN WITH DR. HAIRSTON. PATIENT TO GO HOME TODAY WITH STANDARD ORTHO SHOULDER PRECAUTIONS TAUGHT BY PT. NO HH FOR THIS PATIENT DR. GOODEN PREFERENCE FOR OT POST OP SHOULDER SURGERY DOES NOT TAKE THIS PATIENT'S INSURANCE PATIETN TO FOLLOW UP IN CLINIC. [facility] TO SET UP OUT PATIENT PHYSICAL THERAPY. PT AWARE
--- NOTE | 2025-10-03 11:49 | NUR ---
patient was DC/Home at this time, at bedside, DC instruction provided patient verbalize understanding, Vital signs within normal limits. Surgical incision cover dry and clean, sling in place. F/u appt with Dr. Corona schedule for October 24 @ 9:45am. Medication reconciliation was done. [facility]
== END 2025-10-03 11:55 | disposition home or self-care (01) ==
LOC: DAH 06:49 → DAHIP 06:50 → DAH 06:50 → 4AH 13:47
PROVIDERS: ADMIT Student in an Organized Health Care Education/Training Program; ATTEND Student in an Organized Health Care Education/Training Program
DX: M75.122 Complete rotator cuff tear or rupture of left shoulder, not specified as traumatic (principal); M12.812 Other specific arthropathies, not elsewhere classified, left shoulder; K21.9 Gastro-esophageal reflux disease without esophagitis; I10 Essential (primary) hypertension; D62 Acute posthemorrhagic anemia; E78.5 Hyperlipidemia, unspecified; R00.1 Bradycardia, unspecified; K29.70 Gastritis, unspecified, without bleeding; M25.512 Pain in left shoulder; Z79.899 Other long term (current) drug therapy; Z98.890 Other specified postprocedural states
CPT/HCPCS: 82040; 85025; 85610; 85730; 84134; 86140; 36415 ×2; 93005; 87641; 23472; 96374; 96375; 64415; 73020; 73030; 97161; 97116 ×2; 96376; 80048; 85027; 97530; G0378 ×23; A4223 ×2; A4600; C1776 ×4; C1713 ×3; A4663; J7030; J7120; J3010; J3490 ×9; J1100; J0330; J2270; J2003; J2250; J2704; J2405 ×2; J2795; J1885 ×3; J2371 ×2; J0690 ×4; A4930; A4649; A6254; A4215; A4213; A4222; A4221; A4216